=== PATIENT | male | born 1970 | race Caucasian/White ===

== ENCOUNTER 2016-12-18 01:04 | Emergency (ER) | payer OTHER ==
[~2016-12-18] VITALS: Ht 167.6 cm; Wt 104.2 kg
[~2016-12-18 01:04] MED LIST: Z.0.NO CURRENT MEDS
[2016-12-18 01:08] VITALS: BP 151/85; PULSE 74; RESP 16; TEMP 98.2; O2SAT 97
[2016-12-18] MEDS ORDERED: LEVO200T4 PO (01:28)
[2016-12-18] MEDS ORDERED: LISI-515 PO (01:28)
[2016-12-18] MEDS ORDERED: ONDANSETRON HCL 4 MG/2 ML VIAL IV PUSH ONE (01:30)
[2016-12-18] MEDS ORDERED: SODIUM CHLORIDE 0.9% FLUSH 10 ML FLUSH IV FLUSH PRN (01:30)
[2016-12-18] MEDS ORDERED: MORPHINE SULFATE 4 MG/ML INJ IV PUSH ONE (01:30)
--- NOTE | 2016-12-18 01:30 | PD ---
HPI Chief Complaint: Pain: Acute or Chronic Time Seen by Provider: 01:20 Travel History International Travel<30 days: No Contact w/Intl Traveler<30days: No Traveled to known affect area: No History of Present Illness HPI 46-year-old male presents to the emergency department by private transportation in the care of family for evaluation of left-sided abdominal pain and flank pain. Onset of symptoms since Friday. Patient has had associated nausea and vomiting. No report of hematemesis coffee-ground emesis melena hematochezia. No reported fever. Patient denies chest pain or shortness of breath. Patient does have history of hypertension and dyslipidemia. Patient is not diabetic and does not smoke cigarettes. No reported dysuria frequency urgency or hematuria. No prior history of kidney stones, diverticulosis, irritable bowel syndrome, inflammatory bowel disease, or similar abdominal pain. No prior abdominal surgeries. Patient states pain at worst is 7-8/10 in intensity. Currently discomfort is 6/10 in intensity. Patient is unable to identify exacerbating or alleviating factors. Family history of atypical appendicitis. PFSH Past Medical History Narrative Medical Hypertension dyslipidemia asthma tobaccoism nursing notes reviewed Asthma: Yes (CHILDHOOD) High Cholesterol: Yes Hypertension: Yes ?: Not Social History Alcohol Use: No Tobacco Use: Yes (HALF PACK PER DAY) Substance Use: No Allergies-Medications (Allergen,Severity, Reaction): Coded Allergies: No Known Allergies (Verified , 12/18/16) Reported Meds & Prescriptions Reported Meds & Active Scripts Active Reported Levothyroxine (Levothyroxine Sodium) 200 Mcg Tab 200 Mcg PO DAILY Lisinopril 20 Mg Tab 20 Mg PO DAILY No Current Meds (Miscellaneous Medication) Misc Narrative Medication Lisinopril Review of Systems Except as stated in HPI: all other systems reviewed are Neg General / Constitutional: No: Fever, Chills HENT: No: Congestion Cardiovascular: No: Chest Pain or Discomfort Respiratory: No: Shortness of Breath Gastrointestinal: Positive: Nausea, Vomiting, Abdominal Pain, No: Diarrhea Genitourinary: Positive: Flank Pain, No: Urgency, Frequency, Dysuria, Hematuria, Decreased Urinary Output Musculoskeletal: No: Myalgias, Arthralgias Skin: No Rash Neurologic: No: Weakness Psychiatric: Positive: Anxiety Hematologic/Lymphatic: No: Lymph Node Enlargement Physical Exam Narrative GENERAL: Well-developed well-nourished male in no acute distress no respiratory distress SKIN: Warm and dry. HEAD: Normocephalic. EYES: No scleral icterus. No injection or drainage. NECK: Supple, trachea midline. No JVD or lymphadenopathy. CARDIOVASCULAR: Regular rate and rhythm without murmurs, gallops, or rubs. RESPIRATORY: Breath sounds equal bilaterally. No accessory muscle use. GASTROINTESTINAL: Abdomen soft, non-tender, nondistended. MUSCULOSKELETAL: No cyanosis, or edema. BACK: Nontender without obvious deformity. No CVA tenderness. Data Data Last Documented VS Vital Signs Date Time Temp Pulse Resp B/P Pulse Ox O2 Delivery O2 Flow Rate FiO2 12/18/16 03:13 78 16 129/72 99 Room Air 12/18/16 01:08 98.2 Orders Complete Blood Count With Diff (12/18/16 01:20) Comprehensive Metabolic Panel (12/18/16 01:20) Lipase (12/18/16 01:20) Urinalysis - C+S If Indicated (12/18/16 01:20) Iv Access Insert/Monitor (12/18/16 01:20) Ecg Monitoring (12/18/16 01:20) Oximetry (12/18/16 01:20) Sodium Chloride 0.9% Flush (Ns Flush) (12/18/16 01:30) Ondansetron Inj (Zofran Inj) (12/18/16 01:30) Morphine Inj (Morphine Inj) (12/18/16 01:30) Chest, Single Ap (12/18/16 ) Morphine Inj (Morphine Inj) (12/18/16 01:50) Ct Abd/Pel W Iv Contrast(Rout) (12/18/16 ) Iohexol 350 Inj (Omnipaque 350 Inj) (12/18/16 02:48) Ketorolac Inj (Toradol Inj) (12/18/16 04:15) Labs Laboratory Tests Test 12/18/16 01:30 White Blood Count 10.4 TH/MM3 Red Blood Count 5.52 MIL/MM3 Hemoglobin 15.8 GM/DL Hematocrit 47.8 % Mean Corpuscular Volume 86.6 FL Mean Corpuscular Hemoglobin 28.5 PG Mean Corpuscular Hemoglobin 33.0 % Concent Red Cell Distribution Width 12.1 % Platelet Count 315 TH/MM3 Mean Platelet Volume 7.7 FL Neutrophils (%) (Auto) 58.7 % Lymphocytes (%) (Auto) 28.7 % Monocytes (%) (Auto) 9.1 % Eosinophils (%) (Auto) 2.8 % Basophils (%) (Auto) 0.7 % Neutrophils # (Auto) 6.1 TH/MM3 Lymphocytes # (Auto) 3.0 TH/MM3 Monocytes # (Auto) 0.9 TH/MM3 Eosinophils # (Auto) 0.3 TH/MM3 Basophils # (Auto) 0.1 TH/MM3 CBC Comment DIFF FINAL Differential Comment Urine Collection Type Urine Color YELLOW Urine Turbidity SLIGHT Urine pH 6.5 Urine Specific [place] 1.021 Urine Protein NEG mg/dL Urine Glucose (UA) NEG mg/dL Urine Ketones NEG mg/dL Urine Occult Blood NEG Urine Nitrite NEG Urine Bilirubin NEG Urine Leukocyte Esterase NEG Urine Squamous Epithelial 0-5 /hpf Cells Urine Amorphous Sediment MOD Urine Mucus OCC /lpf Microscopic Urinalysis Comment CULT NOT INDICATED Sodium Level 138 MEQ/L Potassium Level 4.0 MEQ/L Chloride Level 101 MEQ/L Carbon Dioxide Level 28.3 MEQ/L Anion Gap 9 MEQ/L Blood Urea Nitrogen 18 MG/DL Creatinine 1.10 MG/DL Estimat Glomerular Filtration 72 ML/MIN Rate Random Glucose 213 MG/DL Calcium Level 9.1 MG/DL Total Bilirubin 0.4 MG/DL Aspartate Amino Transf 21 U/L (AST/SGOT) Alanine Aminotransferase 47 U/L (ALT/SGPT) Alkaline Phosphatase 82 U/L Total Protein 8.0 GM/DL Albumin 4.4 GM/DL Lipase 107 U/L [facility] Medical Decision Making Medical Screen Exam Complete: Yes Emergency Medical Condition: Yes Medical Record Reviewed: Yes Interpretation(s) UA: wnl LFT's lipase: grossly wnl Last Impressions Chest X-Ray 12/18/16 0000 Signed Impressions: Service Date/Time: Sunday, December 18, 2016 01:36 - CONCLUSION: The lungs are clear. Ke Clayton MD Abdomen/Pelvis CT 12/18/16 0000 Signed Impressions: Service Date/Time: Sunday, December 18, 2016 02:36 - CONCLUSION: Destiney appearance to the mesentery left hypogastric region is nonspecific, but can be seen with mesenteritis. Steatosis of the liver. Ke Clayton MD CBC & BMP Diagram 12/18/16 01:30 Vital Signs Date Time Temp Pulse Resp B/P Pulse Ox O2 Delivery O2 Flow Rate FiO2 12/18/16 03:13 78 16 129/72 99 Room Air 12/18/16 01:08 98.2 74 16 151/85 97 Differential Diagnosis Flank pain, renal colic, UTI, diverticulitis, colitis, atypical appendicitis, musculoskeletal pain Narrative Course IV access obtained specimens collected and sent for resulting patient administered Zofran 4 mg IV morphine sulfate 3 mg IV and normal saline Patient given IV fluids CBC is automated differential values normal range; metabolic panel values in normal range except for postprandial elevation of blood sugar of 213 Urinalysis normal Chest x-ray no lobar infiltrate effusion orders free subdiaphragmatic [employer] CT abdomen and pelvis reading per radiologist shows nonspecific left hypogastric stranding suspicious for nonspecific mesenteritis; this was discussed with the radiologist no other finding in no acute findings noted Patient reexamined abdomen soft nontender no guarding or rebound did receive a one-time dose of Toradol 30 mg IV. At this time vital signs are normal range patient is afebrile lab values are in normal range except for nonspecific glucose elevation patient's pain on presentation is not greater than physical exam and unlikely to be ischemic related discomfort. Patient appears stable for outpatient management at this time. Patient is encouraged regarding close follow-up with primary care provider. Diagnosis Primary Impression: Abdominal pain Qualified Code: R10.12 - Left upper quadrant pain Additional Impression: Idiopathic sclerosing mesenteritis Referrals: Primary Care Physician 1 day Patient Instructions: Narcotic given in the ED, General Instructions Departure Forms: Tests/Procedures, Work Release Special Instructions: no work x 2 days Additional Instructions: Follow clear liquid diet for next 12-24 hours advance as tolerated to bland/ [place] diet then regular diet avoiding fried and fatty foods Follow up with primary care provider call office to schedule follow-up appointment times one day No work 2 days Monitor temperature every 4 hours with thermometer and take as needed acetaminophen every 4 hours for fever 100.4F or greater or may take ibuprofen 6 mg as often as every 6 hours as needed for pain associated with inflammation or for fever 100.4F or greater Return to the emergency department for pain fever vomiting or any concerns Med/Other Pt SpecificInfo: Prescription(s) given Scripts Ibuprofen 600 Mg Epd548 Mg PO Q6H PRN (Pain/Inflammation) #10 TAB Ref 0 Prov:Salter,Salima H. MD 12/18/16 Ondansetron Odt (Zofran Odt)4 Mg Tab4 Mg SL Q6HR PRN (Nausea/Vomiting) #10 TAB Ref 0 Prov:Salima Fuchs MD 12/18/16 Disposition: 01 DISCHARGE HOME Condition: Stable Salima Fuchs MD Dec 18, 2016 01:30
[2016-12-18 01:42] LABS: BLOOD, URINE NEG (NEG); GLUCOSE,URINE NEG (NEG); KETONE, URINE NEG (NEG); NITRITE,URINE NEG (NEG); PH, URINE 6.5 (5.0-8.5)
[2016-12-18 01:43] LABS: AUTOMATED NEUTROPHIL # 6.1 TH/MM3 (1.8-7.7); BASOPHIL # 0.1 TH/MM3 (0-0.2); BASOPHIL % 0.7 % (0.0-2.0); EOSINOPHIL # 0.3 TH/MM3 (0-0.4); EOSINOPHIL % 2.8 % (0.0-4.0); HEMATOCRIT 47.8 % (39.0-51.0); HEMO FLAGS DIFF FINAL; LYMPH % 28.7 % (9.0-44.0); MEAN CELL VOLUME 86.6 FL (80.0-100.0); MEAN CORPUSCULAR HEMOGLOBIN 28.5 PG (27.0-34.0); MONO % 9.1 % (0.0-8.0); NEUT % 58.7 % (16.0-70.0); PLATELET COUNT 315 TH/MM3 (150-450); RED BLOOD COUNT 5.52 MIL/MM3 (4.50-5.90); RED CELL DISTRIBUTION WIDTH 12.1 % (11.6-17.2); WHITE BLOOD COUNT 10.4 TH/MM3 (4.0-11.0)
[2016-12-18 01:47] LABS: MUCUS URINE OCC /lpf (OCC); URINE COLOR YELLOW (YELLW/STRAW)
[2016-12-18 01:48] LABS: SQUAMOUS EPITHELIAL CELL URINE 0-5 /hpf (0-5)
[2016-12-18 01:49] LABS: CHLORIDE 101 MEQ/L (98-107); SODIUM (NA) 138 MEQ/L (136-145)
[2016-12-18] MEDS ORDERED: MORPHINE SULFATE 8 MG/ML INJ IV PUSH ONE (01:50)
[2016-12-18 01:52] LABS: COMMENT (UR) CULT NOT INDICATED; CULTURE IF INDICATED CULT NOT INDICATED
[2016-12-18 01:53] LABS: ANION GAP 9 MEQ/L (5-15); BICARBONATE 28.3 MEQ/L (21.0-32.0); BLOOD UREA NITROGEN 18 MG/DL (7-18)
--- NOTE | 2016-12-18 01:55 | RADRPT ---
EXAM DATE/TIME: 12/18/2016 01:36 [facility] COMPARISON: No previous studies available for comparison. INDICATIONS : Chest pain. MEDICAL HISTORY : None. SURGICAL HISTORY : None. ENCOUNTER: Initial ACUITY: 1 day PAIN SCORE: 7/10 LOCATION: Bilateral chest FINDINGS: A single view of the chest demonstrates the lungs to be symmetrically aerated without evidence of mas s, infiltrate or effusion. The cardiomediastinal contours are unremarkable. Osseous structures are intact. CONCLUSION: The lungs are clear. Ke Clayton MD on December 18, 2016 at 1:53 Board Certified Radiologist. This report was verified electronically.
[2016-12-18 01:56] LABS: ALT (GPT) 47 U/L (12-78); AST (GOT) 21 U/L (15-37); GLOMERULAR FILTRATION RATE 72 ML/MIN (>89)
[2016-12-18 01:58] LABS: TOTAL BILIRUBIN ADULT 0.4 MG/DL (0.2-1.0)
[2016-12-18 01:59] LABS: ALKALINE PHOSPHATASE 82 U/L (45-117)
[2016-12-18] MEDS ORDERED: IOHEXOL 350 MG/ML 10 ML VIAL (for RAD DIAG) IV ONE (02:48)
[2016-12-18 03:13] VITALS: BP 129/72; PULSE 78; RESP 16; O2SAT 99
--- NOTE | 2016-12-18 03:50 | RADRPT ---
EXAM DATE/TIME: 12/18/2016 02:36 [facility] COMPARISON: No previous studies available for comparison. INDICATIONS : Left upper and lower quadrant pain. Nausea and vomiting. IV CONTRAST: 85 cc Omnipaque 350 (iohexol) IV ORAL CONTRAST: No oral contrast ingested. RADIATION DOSE: 19.23 CTDIvol (mGy) MEDICAL HISTORY : Hypertension. Asthma. SURGICAL HISTORY : None. ENCOUNTER: Initial ACUITY: 4 - 6 days PAIN SCALE: 7/10 LOCATION: Left lower quadrant TECHNIQUE: Volumetric scanning of the abdomen and pelvis was performed. Using automated exposure control and ad justment of the mA and/or kV according to patient size, radiation dose was kept as low as reasonably achievable to obtain optimal diagnostic quality images. DICOM format image data is available electro nically for review and comparison. FINDINGS: LOWER LUNGS: The visualized lower lungs are clear. LIVER: No echodensity of the liver is decreased, characteristic of diffuse fatty change. Homogeneous densit y without lesion. There is no dilation of the biliary tree. No calcified gallstones. SPLEEN: Normal size without lesion. PANCREAS: Within normal limits. KIDNEYS: Normal in size and shape. There is no mass, stone or hydronephrosis. ADRENAL GLANDS: Within normal limits. VASCULAR: There is no aortic aneurysm. BOWEL/MESENTERY: No dilated loops of small or large bowel. There is some induration of the fat of the mesentery left hypogastric region. No evidence of free fluid. ABDOMINAL WALL: Within normal limits. RETROPERITONEUM: There is no lymphadenopathy. BLADDER: No wall thickening or mass. REPRODUCTIVE: Within normal limits. INGUINAL: There is no lymphadenopathy or hernia. MUSCULOSKELETAL: Within normal limits for patient age. CONCLUSION: "Destiney" appearance to the mesentery left hypogastric region is nonspecific, but can be seen with mese nteritis. Steatosis of the liver. Ke Clayton MD on December 18, 2016 at 3:44 Board Certified Radiologist. This report was verified electronically.
[2016-12-18] MEDS ORDERED: KETOROLAC TROMETHAMINE 30 MG/ML (IVP) VIAL IV PUSH ONE (04:15)
[2016-12-18] MEDS ORDERED: IBUP-232 PO (04:40)
[2016-12-18] MEDS ORDERED: ZOFR4TAB3 SL (04:40)
[2016-12-18 05:01] VITALS: BP 129/77
== END 2016-12-18 05:04 | disposition home or self-care (01) ==
LOC: PHED 01:04
DX: K65.4 Sclerosing mesenteritis (principal)
CPT/HCPCS: 71010; 74177; 80053; 81001; 83690; 85025; 96374; 96375; 99285; J1885; J2270; J2405; Q9967